=== PATIENT | male | born 1970 | race Hispanic/Latino ===

== ENCOUNTER 2017-12-25 06:22 | Emergency (ER) | payer MEDICARE ==
[2017-12-25 06:32] VITALS: BP 124/86
--- NOTE | 2017-12-25 07:06 | XRay Report ---
FINAL REPORT EXAM: XR KNEE 1-2V LT HISTORY: Left knee pain post injury COMPARISONS: None. FINDINGS: AP and lateral views left knee Linear radiodensity extends lung length of the left femoral diaphysis with possible surrounding antibiotic impregnated beads. Cortical irregularity is seen at the posterior aspect of the mid femoral diaphysis, which extends off the superior field of view and may be sequela of fracture or infection. Mild tricompartmental osteoarthrosis of the left knee without joint effusion or erosion. IMPRESSION: No acute left knee finding. Postoperative findings and additional potential sequela of fracture and/or infection. Correlation with history is requested.
--- NOTE | 2017-12-25 07:30 | Emergency Department Report ---
HPI - General Chief Complaint: Extremity Injury, Lower Time Seen by Provider: 12/25/17 07:16 - HPI HPI: This is a 47-year-old male who presents to ED complaining of left knee pain 1 day. Patient states around 7 PM last night he was attempting to get out of a van when he stepped his right leg out of the van and twisted his left knee while trying to get out. Patient states he had some throbbing aching pain on his the radiation elsewhere. He denies car fan door hit in the knee or any trauma to the left knee. Patient is unclear as a gayle, to be checked out. He denies fevers/chills/nausea vomiti abdominal pain or any other problems. ED Past Medical Hx - Past Medical History Previous Medical History?: Yes Hx COPD: Yes - Surgical History Past Surgical History?: Yes Additional Surgical History: 1992 hip sx - Social History Smoking Status: Current Every Day Smoker Substance Use Type: None - Medications Home Medications: Home Medications Medication Instructions Recorded Confirmed Last Taken Type Ibuprofen [Motrin 800 MG tab] 800 mg PO TID #30 tablet 12/25/17 Unknown Rx ED Review of Systems ROS: Stated complaint: LT KNEE PAIN Other details as noted in HPI Constitutional: denies: chills, fever Eyes: denies: eye pain, eye discharge, vision change ENT: denies: ear pain, throat pain Respiratory: denies: cough, shortness of breath, wheezing Cardiovascular: denies: chest pain, palpitations Endocrine: no symptoms reported Gastrointestinal: denies: abdominal pain, nausea, diarrhea Genitourinary: denies: urgency, dysuria Musculoskeletal: arthralgia (left knee). denies: back pain, joint swelling Skin: denies: rash, lesions Neurological: denies: headache, weakness, numbness, paresthesias Psychiatric: denies: anxiety, depression Hematological/Lymphatic: denies: easy bleeding, easy bruising Physical Exam - Physical Exam Vital Signs: Vital Signs 12/25/17 06:27 Temperature 97.4 F L Pulse Rate 89 Respiratory 18 Rate Blood Pressure 124/86 O2 Sat by Pulse 95 Oximetry Physical Exam: GENERAL: Alert and oriented x3, no apparent distress, Normal Gait, atraumatic. HEAD: Head is normocephalic and a-traumatic. LUNGS: Symetrical with respiration, No wheezing, no rales or crackles, CTAB. HEART: S1, S2 present, regular rate and rhythm without murmur, no rubs, no gallops. EXTREMITIES/MUSCULOSKELETAL: No cyanosis, clubbing, rash, lesions or edema. Full ROM bilaterally. LE Pulses 2+ bilaterally. LE 5+ strength bilaterally. Patient able to flex and extend the knee joints bilaterally. No swelling, erythema or lesions of the left knee. Mild tenderness to palpation of the anterior aspect of the knee. Varus and vagus test negative NEUROLOGIC: The patient is cooperative with no focal neurologic deficits. . Normal speech. Normal sensation in bilateral upper and lower extremities, No loss of sensation, SKIN: Warm and dry, No lesions, No ulceration or induration present. ED Course Vital Signs 12/25/17 06:27 Temperature 97.4 F L Pulse Rate 89 Respiratory 18 Rate Blood Pressure 124/86 O2 Sat by Pulse 95 Oximetry ED Medical Decision Making - Radiology Data Radiology results: report reviewed, image reviewed FINAL REPORT EXAM: XR KNEE 1-2V LT HISTORY: Left knee pain post injury COMPARISONS: None. FINDINGS: AP and lateral views left knee Linear radiodensity extends lung length of the left femoral diaphysis with possible surrounding antibiotic impregnated beads. Cortical irregularity is seen at the posterior aspect of the mid femoral diaphysis, which extends off the superior field of view and may be sequela of fracture or infection. Mild tricompartmental osteoarthrosis of the left knee without joint effusion or erosion. IMPRESSION: No acute left knee finding. Postoperative findings and additional potential sequela of fracture and/or infection. Correlation with history is requested. Transcribed By: MB Dictated By: ZI LUCIO MD Electronically Authenticated By: ZI LUCIO MD Signed Date/Time: 12/25/17 0701 - Medical Decision Making 47-year-old male presents to ED with left knee pain ED course: Patient received ibuprofen in ED. X-ray of the knee shows no acute findings. Postop findings, see report above Vital signs are normal patient is in no acute distress Discussed with patient follow-up with primary care physician. Discussed the patient and take medications as prescribed. I discussed with the patient and his symptoms are worsening or new symptoms arise to return to ED immediately Patient has no neurological deficit. Patient is alert and oriented 3 and understands all instructions given. Patient did mention that he was given Started on Robaxin at [facility]. I discussed the patient to help with his knee pain. Critical care attestation.: If time is entered above; I have spent that time in minutes in the direct care of this critically ill patient, excluding procedure time. ED Disposition Clinical Impression: Left anterior knee pain Disposition: DC- TO HOME OR SELFCARE Is pt being admited?: No Does the pt Need Aspirin: No Condition: Stable Instructions: Knee Pain (ED), Arthralgia (ED), Knee Exercises (GEN) Additional Instructions: Make sure to follow up with the primary care physician as discussed. Take all your medications as you've been prescribed. If you have any worsening symptoms or develop new symptoms please return to ED immediately. Prescriptions: Ibuprofen [Motrin 800 MG tab] 800 mg PO TID #30 tablet Referrals: PRIMARY CARE, [Primary Care Provider] - 3-5 Days [facility] [Outside] - 3-5 Days [facility] [Outside] - 3-5 Days Forms: Work/School Release Form(ED) Time of Disposition: 07:38
[2017-12-25] MEDS: MOTRIN PO ONE (07:46)
== END 2017-12-25 08:00 | disposition home or self-care (01) ==
LOC: ED 06:22
DX: M25.562 Pain in left knee (principal); J44.9 Chronic obstructive pulmonary disease, unspecified; F17.200 Nicotine dependence, unspecified, uncomplicated
CPT/HCPCS: 99283

== ENCOUNTER 2018-01-07 00:16 | Emergency (ER) | payer MEDICARE ==
[2018-01-07 00:34] VITALS: BP 117/78
== END 2018-01-07 04:13 | disposition left against medical advice (07) ==
LOC: ED 00:16
DX: M25.552 Pain in left hip (principal); Z53.21 Procedure and treatment not carried out due to patient leaving prior to being seen by health care provider

== ENCOUNTER 2018-01-07 08:33 | Emergency (ER) | payer MEDICARE ==
[2018-01-07 09:15] VITALS: BP 131/80
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
[2018-01-07] MEDS ORDERED: TORADOL IM ONE (12:02)
== END 2018-01-07 12:18 | disposition home or self-care (01) ==
LOC: ED 08:33
DX: M25.562 Pain in left knee (principal); G89.29 Other chronic pain; M25.552 Pain in left hip; J44.9 Chronic obstructive pulmonary disease, unspecified; F17.200 Nicotine dependence, unspecified, uncomplicated
CPT/HCPCS: 96372; 99281; J1885

== ENCOUNTER 2018-01-15 02:06 | Emergency (ER) | payer MEDICARE ==
[2018-01-15 03:03] VITALS: BP 125/85
--- NOTE | 2018-01-15 03:48 | XRay Report ---
FINAL REPORT PROCEDURE: XR KNEE 1-2V RT TECHNIQUE: RIGHT knee radiographs, AP and lateral views. CPT 31667 HISTORY: Right knee pain COMPARISON: No prior studies are available for comparison. FINDINGS: Fracture (s) and/or Dislocation(s): None . Alignment: Normal . Joint space(s): Moderate narrowing of the joint spaces. Slight spur formation off of the osseous structures. Soft tissues: Normal . Bone mineralization: Normal . Foreign bodies: None . IMPRESSION: No evidence of an acute fracture or dislocation. Moderate arthritis.
--- NOTE | 2018-01-15 03:58 | XRay Report ---
FINAL REPORT EXAM: XR HIP 2-3V LT HISTORY: Left hip pain TECHNIQUE: An AP view of the pelvis was obtained along with a lateral view of the left hip. FINDINGS: There is [id number] narrowing of the left hip joint space with deformity of the femoral head. Joint fluid is not seen. There is no evidence of acute fracture. There is a chronic well-healed fracture deformity involving the proximal diaphysis of the left femur with hardware in place. The bony pelvic ring appears intact. The left hip joint reveals mild arthritic changes. The SI joints appear normal. IMPRESSION: [id number] arthritic changes left hip joint with deformity. Remote well-healed fracture of the proximal diaphysis of the left femur. Mild arthritic changes the right hip joint.
[2018-01-15] MEDS ORDERED: TYLENOL PO ONE (05:37)
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
== END 2018-01-15 06:10 | disposition home or self-care (01) ==
LOC: ED 02:06
DX: M25.552 Pain in left hip (principal); M25.561 Pain in right knee; J44.9 Chronic obstructive pulmonary disease, unspecified; F17.200 Nicotine dependence, unspecified, uncomplicated
CPT/HCPCS: 99284